=== PATIENT | female | born 1960 | race African-American/Black ===

== ENCOUNTER → 2017-07-01 | Outpatient (CLI) | payer OTHER | END | disposition home or self-care (01) | LOC: RAD 15:20 | DX: M19.071 Primary osteoarthritis, right ankle and foot (principal); M77.31 Calcaneal spur, right foot; G89.29 Other chronic pain; R60.0 Localized edema | CPT/HCPCS: 73610; 73630 ==

== ENCOUNTER → 2017-09-30 | Outpatient (CLI) | payer OTHER | END | disposition home or self-care (01) | LOC: MRI 07:58 | DX: S93.601D Unspecified sprain of right foot, subsequent encounter (principal); M72.2 Plantar fascial fibromatosis; R60.0 Localized edema; X58.XXXD Exposure to other specified factors, subsequent encounter | CPT/HCPCS: 73718 ==